=== PATIENT | female | born 1945 | race Caucasian/White ===

== ENCOUNTER 2019-06-16 14:14 | Emergency (ER) | payer MEDICARE, BC ==
[~2019-06-16] VITALS: Ht 165.1 cm; Wt 56.8 kg
[~2019-06-16 14:14] MED LIST: ALEN70TA60 PO; MAG400T PO; MECL12.584 PO; OMEG1CAP54 PO; ONDA4TAB59 PO; OSC500T PO; RIVA15TA PO; SIMV10TA2 PO; VERA240T PO
[2019-06-16 14:45] LABS: BASOPHILS % (AUTO) 0.9 % (0-1); EOSINOPHILS # (AUTO) 0.1 X10'3 (0-0.9); EOSINOPHILS % (AUTO) 1.4 % (0-6); HEMATOCRIT 47.3 % (35.0-45.0); HEMOGLOBIN 16.1 g/dl (12.0-16.0); LYMPHOCYTES # (AUTO) 1.7 X10'3 (1.1-4.8); LYMPHOCYTES % (AUTO) 33.6 % (21-51); MEAN CORPUSCULAR HEMOGLOBIN 30.6 PG (27.0-31.0); MEAN CORPUSCULAR HGB CONC 33.9 g/dL (33.0-36.5); MEAN CORPUSCULAR VOLUME 90.2 FL (78-98); MEAN PLATELET VOLUME 8.2 FL (7.4-10.4); MONOCYTES # (AUTO) 0.3 X10'3 (0-0.9); MONOCYTES % (AUTO) 6.5 % (2-12); NEUTROPHILS # (AUTO) 2.9 X10'3 (1.8-7.7); NEUTROPHILS % (AUTO) 57.6 % (42-75); PLATELET COUNT 147 X10'3 (140-440); RED BLOOD COUNT 5.25 X10'6 (4.20-5.60); RED CELL DISTRIBUTION WIDTH 13.6 % (11.5-14.5)
[2019-06-16 14:57] LABS: PARTIAL THROMBOPLASTIN TIME 29 SECONDS (22-32)
[2019-06-16 15:02] LABS: ALANINE AMINOTRANSFERASE 35 U/L (12-78); ALBUMIN 4.3 G/DL (3.4-5.0); ALBUMIN/GLOBULIN RATIO 1.2 (1.1-1.5); ALKALINE PHOSPHATASE 57 IU/L (46-116); ANION GAP 6 (8-16); ASPARTATE AMINO TRANSFERASE 29 U/L (10-37); BILIRUBIN,TOTAL 0.6 MG/DL (0.1-1.0); BLOOD UREA NITROGEN 23 MG/DL (7-18); BUN/CREATININE RATIO 19.7 (6.6-38.0); CALCIUM 9.8 MG/DL (8.5-10.1); CHLORIDE 104 MMOL/L (99-107); CREATININE 1.17 MG/DL (0.40-0.90); GLUCOSE 133 MG/DL (70-104); POTASSIUM 3.5 MMOL/L (3.5-5.1); SODIUM 144 MMOL/L (135-145); TOTAL CARBON DIOXIDE 34.2 MMOL/L (24-32); eGFR 45 ML/MIN
[2019-06-16 15:10] LABS: MAGNESIUM 2.2 MG/DL (1.5-2.4)
[2019-06-16 15:31] VITALS: BP 120/71
[2019-06-16] MEDS ORDERED: RIVA20TA PO (15:35)
[2019-06-16] MEDS ORDERED: SOTA80TA PO (15:35)
== END 2019-06-16 15:32 | disposition home or self-care (01) ==
LOC: ER 14:15
DX: I48.91 Unspecified atrial fibrillation (principal); I10 Essential (primary) hypertension; Z86.718 Personal history of other venous thrombosis and embolism; Z98.61 Coronary angioplasty status; Z88.2 Allergy status to sulfonamides; Z79.899 Other long term (current) drug therapy; Z88.5 Allergy status to narcotic agent
CPT/HCPCS: 36415; 71045; 80053; 83735; 83880; 84484; 85025; 85610; 85730; 93005; 99284

== ENCOUNTER 2021-03-13 07:04 | Emergency (ER) | payer MEDICARE, BC ==
[~2021-03-13] VITALS: Ht 152.4 cm; Wt 58.2 kg
[~2021-03-13 07:04] MED LIST changes: +MECL-226 PO; -MECL12.584 PO; +RIVA20TA PO; +SOTA80TA PO
[2021-03-13] MEDS ORDERED: normal saline 1000ml 1,000 ML IV ONE (07:20)
[2021-03-13 07:39] LABS: BASOPHILS % (AUTO) 0.2 % (0-1); EOSINOPHILS % (AUTO) 0.2 % (0-6); HEMATOCRIT 46.9 % (35.0-45.0); HEMOGLOBIN 15.6 g/dl (12.0-16.0); LYMPHOCYTES # (AUTO) 0.2 X10'3 (1.1-4.8); LYMPHOCYTES % (AUTO) 2.1 % (21-51); MEAN CORPUSCULAR HEMOGLOBIN 30.5 PG (27.0-31.0); MEAN CORPUSCULAR HGB CONC 33.2 g/dL (33.0-36.5); MEAN CORPUSCULAR VOLUME 91.8 FL (78-98); MEAN PLATELET VOLUME 8.6 FL (7.4-10.4); MONOCYTES # (AUTO) 0.3 X10'3 (0-0.9); MONOCYTES % (AUTO) 3.2 % (2-12); NEUTROPHILS # (AUTO) 7.4 X10'3 (1.8-7.7); NEUTROPHILS % (AUTO) 94.3 % (42-75); PLATELET COUNT 111 X10'3 (140-440); RED BLOOD COUNT 5.11 X10'6 (4.20-5.60); RED CELL DISTRIBUTION WIDTH 13.6 % (11.5-14.5); WHITE BLOOD COUNT 7.9 X10'3 (4.5-11.0)
[2021-03-13 07:54] LABS: ALANINE AMINOTRANSFERASE 45 U/L (12-78); ALBUMIN 3.7 G/DL (3.4-5.0); ALBUMIN/GLOBULIN RATIO 1.1 (1.1-1.5); ALKALINE PHOSPHATASE 56 IU/L (46-116); ANION GAP 12 (8-16); ASPARTATE AMINO TRANSFERASE 28 U/L (10-37); BLOOD UREA NITROGEN 34 MG/DL (7-18); BUN/CREATININE RATIO 26.8 (6.6-38.0); CALCIUM 8.7 MG/DL (8.5-10.1); CHLORIDE 106 MMOL/L (99-107); CREATININE 1.27 MG/DL (0.40-0.90); GLUCOSE 208 MG/DL (70-104); POTASSIUM 3.8 MMOL/L (3.5-5.1); SODIUM 145 MMOL/L (135-145); TOTAL CARBON DIOXIDE 27.2 MMOL/L (24-32); eGFR 41 ML/MIN
[2021-03-13 08:00] LABS: MAGNESIUM 1.9 MG/DL (1.5-2.4)
[2021-03-13] MEDS ORDERED: ONDA4TAB6 PO (08:25)
[2021-03-13 09:03] VITALS: BP 94/63
== END 2021-03-13 09:06 | disposition home or self-care (01) ==
LOC: ER 07:04
DX: K52.9 Noninfective gastroenteritis and colitis, unspecified (principal); R11.10 Vomiting, unspecified; R53.1 Weakness; E86.0 Dehydration; I10 Essential (primary) hypertension; Z86.718 Personal history of other venous thrombosis and embolism; Z98.51 Tubal ligation status; Z88.2 Allergy status to sulfonamides; Z79.899 Other long term (current) drug therapy
CPT/HCPCS: 36415; 71045; 80053; 83735; 83880; 84484; 85025; 93005; 99285; J7030

== ENCOUNTER 2023-04-05 07:37 | Emergency (ER) | payer MEDICARE, BC ==
[~2023-04-05] VITALS: Ht 165.1 cm; Wt 58.2 kg
[~2023-04-05 07:37] MED LIST changes: +ONDA4TAB6 PO; +SIMV-341 PO; -SIMV10TA2 PO
[2023-04-05 08:23] LABS: BASOPHILS % (AUTO) 0.4 % (0-1); EOSINOPHILS # (AUTO) 0.1 X10'3 (0-0.9); HEMATOCRIT 41.3 % (35.0-45.0); LYMPHOCYTES # (AUTO) 1.1 X10'3 (1.1-4.8); LYMPHOCYTES % (AUTO) 20.3 % (21-51); MEAN CORPUSCULAR HEMOGLOBIN 30.2 PG (27.0-31.0); MEAN CORPUSCULAR HGB CONC 33.8 g/dL (33.0-36.5); MEAN CORPUSCULAR VOLUME 89.5 FL (78-98); MEAN PLATELET VOLUME 8.1 FL (7.4-10.4); MONOCYTES # (AUTO) 0.4 X10'3 (0-0.9); MONOCYTES % (AUTO) 8.1 % (2-12); NEUTROPHILS # (AUTO) 3.8 X10'3 (1.8-7.7); NEUTROPHILS % (AUTO) 70.2 % (42-75); PLATELET COUNT 170 X10'3 (140-440); RED BLOOD COUNT 4.62 X10'6 (4.20-5.60); RED CELL DISTRIBUTION WIDTH 14.3 % (11.5-14.5); WHITE BLOOD COUNT 5.4 X10'3 (4.5-11.0)
[2023-04-05 08:36] LABS: ALANINE AMINOTRANSFERASE 19 U/L (12-78); ALBUMIN 3.5 G/DL (3.4-5.0); ALBUMIN/GLOBULIN RATIO 1.1 (1.1-1.5); ALKALINE PHOSPHATASE 61 IU/L (46-116); ANION GAP 7 (8-16); ASPARTATE AMINO TRANSFERASE 24 U/L (10-37); BILIRUBIN,TOTAL 0.5 MG/DL (0.1-1.0); BLOOD UREA NITROGEN 27 MG/DL (7-18); BUN/CREATININE RATIO 20.9 (10.0-20.0); CALCIUM 9.6 MG/DL (8.5-10.1); CHLORIDE 103 MMOL/L (99-107); CREATININE 1.29 MG/DL (0.40-0.90); GLUCOSE 148 MG/DL (70-104); MAGNESIUM 1.9 MG/DL (1.5-2.4); POTASSIUM 3.7 MMOL/L (3.5-5.1); SODIUM 140 MMOL/L (135-145); TOTAL CARBON DIOXIDE 30.4 MMOL/L (24-32); TOTAL PROTEIN 6.8 G/DL (6.4-8.2); eGFR 40 ML/MIN
--- NOTE | 2023-04-05 09:18 | NUR ---
PT CONVERTED HERSELF, 0905 71 BPM. WANTS REPEAT EKG.
[2023-04-05 09:29] VITALS: BP 114/73
== END 2023-04-05 09:31 | disposition home or self-care (01) ==
LOC: ER 07:37
DX: I48.0 Paroxysmal atrial fibrillation (principal); I10 Essential (primary) hypertension; Z88.2 Allergy status to sulfonamides; Z79.899 Other long term (current) drug therapy; Z79.1 Long term (current) use of non-steroidal anti-inflammatories (NSAID)
CPT/HCPCS: 36415; 71045; 80053; 83735; 83880; 84484; 85025; 99285

== ENCOUNTER 2023-04-29 08:44 | Emergency (ER) | payer MEDICARE, BC ==
[~2023-04-29] VITALS: Ht 165.1 cm; Wt 58.6 kg
[2023-04-29] MEDS: diltiazem 5mg/ml 5ml inj. IV ONE ×2 (09:51→09:53)
[2023-04-29] MEDS ORDERED: normal saline 1000ml 1,000 ML IV ONE (09:55)
[2023-04-29 09:58] LABS: BASOPHILS % (AUTO) 0.4 % (0-1); EOSINOPHILS % (AUTO) 0.6 % (0-6); HEMATOCRIT 41.7 % (35.0-45.0); HEMOGLOBIN 14.2 g/dl (12.0-16.0); LYMPHOCYTES # (AUTO) 1.2 X10'3 (1.1-4.8); LYMPHOCYTES % (AUTO) 16.2 % (21-51); MEAN CORPUSCULAR HEMOGLOBIN 30.4 PG (27.0-31.0); MEAN CORPUSCULAR VOLUME 89.4 FL (78-98); MEAN PLATELET VOLUME 8.7 FL (7.4-10.4); MONOCYTES # (AUTO) 0.6 X10'3 (0-0.9); MONOCYTES % (AUTO) 8.1 % (2-12); NEUTROPHILS # (AUTO) 5.8 X10'3 (1.8-7.7); NEUTROPHILS % (AUTO) 74.7 % (42-75); PLATELET COUNT 203 X10'3 (140-440); RED BLOOD COUNT 4.66 X10'6 (4.20-5.60); RED CELL DISTRIBUTION WIDTH 14.1 % (11.5-14.5); WHITE BLOOD COUNT 7.7 X10'3 (4.5-11.0)
[2023-04-29 10:03] LABS: ALANINE AMINOTRANSFERASE 18 U/L (12-78); ALBUMIN 3.5 G/DL (3.4-5.0); ALKALINE PHOSPHATASE 56 IU/L (46-116); ANION GAP 10 (8-16); ASPARTATE AMINO TRANSFERASE 19 U/L (10-37); BILIRUBIN,TOTAL 0.5 MG/DL (0.1-1.0); BLOOD UREA NITROGEN 38 MG/DL (7-18); BUN/CREATININE RATIO 34.9 (10.0-20.0); CHLORIDE 104 MMOL/L (99-107); CREATININE 1.09 MG/DL (0.40-0.90); GLUCOSE 106 MG/DL (70-104); POTASSIUM 3.8 MMOL/L (3.5-5.1); SODIUM 141 MMOL/L (135-145); TOTAL CARBON DIOXIDE 26.6 MMOL/L (24-32); TOTAL PROTEIN 7.1 G/DL (6.4-8.2); eGFR 49 ML/MIN
[2023-04-29 10:15] LABS: CALCIUM 9.6 MG/DL (8.5-10.1)
[2023-04-29 12:40] VITALS: BP 110/61
== END 2023-04-29 12:39 | disposition home or self-care (01) ==
LOC: ER 08:44
DX: I48.0 Paroxysmal atrial fibrillation (principal); R00.0 Tachycardia, unspecified; I10 Essential (primary) hypertension; Z79.899 Other long term (current) drug therapy; Z88.2 Allergy status to sulfonamides; Z79.1 Long term (current) use of non-steroidal anti-inflammatories (NSAID)
CPT/HCPCS: 36415; 71045; 80053; 83880; 84484; 85025; 93005; 96360; 99285; J7030; J3490

== ENCOUNTER 2023-09-12 15:07 | Emergency (ER) | payer MEDICARE, BC ==
[~2023-09-12] VITALS: Ht 165.1 cm; Wt 62.3 kg
[2023-09-12 15:17] VITALS: BP 119/44; PULSE 57; TEMP 98.1; O2SAT 97
[2023-09-12] MEDS ORDERED: LIDOCAINE 1%/EPI 1:100,000 inj. 10 ML multi-dose vial SQ ONE (15:45)
[2023-09-12] MEDS ORDERED: TETanus/Pertussis (Acell)/Diphther VAC/PF (Tdap-Adult) 0.5ml syringe IMVAC ONE (15:50)
[2023-09-12] MEDS ORDERED: tetanus & diphtheria toxoid (Td) vaccine 0.5ml IMVAC ONE (15:50)
--- NOTE | 2023-09-12 17:22 | NUR ---
SCALE CLERK ASSESSMENT REVIEWED BY JOSELO BEAVER RN; APPROVED
[2023-09-12] MEDS ORDERED: HYDROcodone/acetaminophen 5mg/325mg tablet PO ONE (18:00)
[2023-09-12 18:09] VITALS: RESP 18
[2023-09-12] MEDS ORDERED: HYDR-3965 PO ×2 (18:10)
[2023-09-13] MEDS ORDERED: CEPH250T PO (19:39)
[2023-09-21] MEDS ORDERED: ROSU10TA28 PO (10:07)
[2023-09-21] MEDS ORDERED: APIX5TAB3 PO (10:07)
[2023-09-21] MEDS ORDERED: SOTA80TA73 PO (10:07)
== END 2023-09-12 18:19 | disposition home or self-care (01) ==
LOC: ER 15:07
DX: S61.512A Laceration without foreign body of left wrist, initial encounter (principal); S80.01XA Contusion of right knee, initial encounter; I11.0 Hypertensive heart disease with heart failure; Z88.2 Allergy status to sulfonamides; Z79.899 Other long term (current) drug therapy; Z79.1 Long term (current) use of non-steroidal anti-inflammatories (NSAID); Z79.2 Long term (current) use of antibiotics; W19.XXXA Unspecified fall, initial encounter; Y93.89 Activity, other specified; Y92.89 Other specified places as the place of occurrence of the external cause; Y99.8 Other external cause status
CPT/HCPCS: 12001; 90471; 90715; 99284; A6222; A6258; A6449

== ENCOUNTER 2023-09-13 19:01 | Emergency (ER) | payer MEDICARE, BC ==
[~2023-09-13] VITALS: Ht 165.1 cm; Wt 59.1 kg
[~2023-09-13 19:01] MED LIST changes: +HYDR-3965 PO
[2023-09-13] MEDS ORDERED: CEPH250T PO (19:39)
[2023-09-13 20:04] VITALS: BP 124/70; PULSE 65; RESP 16; TEMP 98.6; O2SAT 99
== END 2023-09-13 20:07 | disposition home or self-care (01) ==
LOC: ER 19:02
DX: S61.512D Laceration without foreign body of left wrist, subsequent encounter (principal); I11.0 Hypertensive heart disease with heart failure; Z88.2 Allergy status to sulfonamides; Z79.899 Other long term (current) drug therapy; X58.XXXD Exposure to other specified factors, subsequent encounter
CPT/HCPCS: 29125; 99283

== ENCOUNTER 2023-09-24 07:37 | Day surgery (SDC) | payer MEDICARE, BC ==
[2023-09-21 10:09] LABS: BASOPHILS % (AUTO) 0.5 % (0-1); EOSINOPHILS # (AUTO) 0.1 X10'3 (0-0.9); EOSINOPHILS % (AUTO) 1.7 % (0-6); LYMPHOCYTES # (AUTO) 1.2 X10'3 (1.1-4.8); LYMPHOCYTES % (AUTO) 23.8 % (21-51); MEAN CORPUSCULAR HEMOGLOBIN 29.8 PG (27.0-31.0); MEAN CORPUSCULAR HGB CONC 33.2 g/dL (33.0-36.5); MEAN CORPUSCULAR VOLUME 89.8 FL (78-98); MEAN PLATELET VOLUME 7.9 FL (7.4-10.4); MONOCYTES # (AUTO) 0.5 X10'3 (0-0.9); MONOCYTES % (AUTO) 10.8 % (2-12); NEUTROPHILS # (AUTO) 3.1 X10'3 (1.8-7.7); NEUTROPHILS % (AUTO) 63.2 % (42-75); PRE OP HEMATOCRIT 43.2 % (35.0-45.0); PRE OP HEMOGLOBIN 14.4 g/dL (12.0-16.0); PRE OP PLATELET COUNT 139 X10'3 (140-440); RED BLOOD COUNT 4.81 X10'6 (4.20-5.60); RED CELL DISTRIBUTION WIDTH 14.6 % (11.5-14.5)
[2023-09-21 10:26] LABS: ALBUMIN 3.5 G/DL (3.4-5.0); ALBUMIN/GLOBULIN RATIO 1.1 (1.1-1.5); ALKALINE PHOSPHATASE 55 IU/L (46-116); BLOOD UREA NITROGEN 33 MG/DL (7-18); BUN/CREATININE RATIO 29.7 (10.0-20.0); CALCIUM 9.9 MG/DL (8.5-10.1); CHLORIDE 104 MMOL/L (99-107); CREATININE 1.11 MG/DL (0.40-0.90); PRE OP ALT 21 U/L (30-65); PRE OP ANION GAP 6 (8-16); PRE OP AST 20 U/L (10-37); PRE OP BILIRUB, TOTAL 0.6 MG/DL (0.0-1.0); PRE OP GLUCOSE 100 MG/DL (70-104); PRE OP POTASSIUM 3.8 MMOL/L (3.4-5.1); PRE OP SODIUM 139 MMOL/L (135-145); TOTAL CARBON DIOXIDE 29.5 MMOL/L (24-32); TOTAL PROTEIN 6.7 G/DL (6.4-8.2); eGFR 48 ML/MIN
[2023-09-24] VITALS (7 sets, daily range): BP systolic 126–159; BP diastolic 66–89; PULSE 48–57; RESP 10–16; TEMP 96.3; O2SAT 94–96
[~2023-09-24] VITALS: Ht 165.1 cm; Wt 59.1 kg
[~2023-09-24 07:37] MED LIST changes: -ALEN70TA60 PO; +APIX5TAB3 PO; +DOCUMENT DATE & TIME OF BETA-BLOCKER PO ONE; -HYDR-3965 PO; -MAG400T PO; -MECL-226 PO; -OMEG1CAP54 PO; -ONDA4TAB59 PO; -ONDA4TAB6 PO; -OSC500T PO; -RIVA15TA PO; -RIVA20TA PO; +ROSU10TA28 PO; -SIMV-341 PO; -SOTA80TA PO; +SOTA80TA73 PO; +cefazolin 2gm/D5W 100mL 100 ML IV ONE; +famotidine 20mg tablet PO ONE; +ringers solution, lacted 1,000 ML IV SCH
[2023-09-24] MEDS ORDERED: ringers solution, lacted 1,000 ML IV SCH (10:00)
[2023-09-24] MEDS ORDERED: acetaminophen 1,000mg/100ml IV 100 ML IV PRN (10:00)
[2023-09-24] MEDS ORDERED: meperidine/PF 25mg/ml syringe IV PRN ×3 (10:00)
[2023-09-24] MEDS ORDERED: hydrALAZINE 20mg/ml inj. IV PRN (10:00)
[2023-09-24] MEDS ORDERED: ondansetron/PF 4mg/2ml inj IV PRN (10:00)
[2023-09-24] MEDS ORDERED: morphine 4 MG/ML inj SYRINge IV PRN (10:00)
[2023-09-24] MEDS ORDERED: proCHLORperazine 10 MG/2 ml inj IV PRN (10:00)
[2023-09-24] MEDS ORDERED: morphine 2 MG/ML inj. syringe IV PRN (10:00)
[2023-09-24] MEDS ORDERED: labetalol 20mg/4ml (5mg/ml) syringe IV PRN (10:00)
[2023-09-24] MEDS ORDERED: BUPIVAcaine/PF 2.5mg/ml (0.25%) 10ml vial ONE (11:16)
[2023-09-24] MEDS ORDERED: midazolam 1 mg/ML 2ml injection ONE (11:18)
[2023-09-24] MEDS ORDERED: fentaNYL/PF 50MCG/1 ML 2ML syringe ONE (11:58)
[2023-09-24] MEDS ORDERED: BUPIVAcaine 0.5% W/EPI /PF 10ml vial IJ ONE (12:02)
[2023-09-24] MEDS ORDERED: propofol inj 20 ML IV ONE (12:07)
--- NOTE | 2023-09-24 12:14 | NUR ---
Received from OR via STRETCHER , accompanied by Anesthesiologist COLETTE and report given by Anesthesiolgist. PT IS DROWSY BUT RESPONSIVE. ON RA ON ARRIVAL= MAINTAINING SAO2 AT >96%. MONITOR SB. EUPNEIC RESPIRATIONS. L WRIST IN SOFT CAST AND ANNE MARIE WRAP D&I. REPORTS FINGERS ARE NUMB BUT ABLE TO MOVE THEM AND ALL EXTREMITIES.DENIES PAIN OR NAUSEA. ENCOURAGED TO DEEP BREATHE AND MOVE FINGERS. ICE TO WRIST. Addendum: 09/24/23 at 1319 by Candi Amin RN Amended: Links added.
--- NOTE | 2023-09-24 13:14 | NUR ---
PT NOW FULLY AWAKE. MONITOR CONTINUES SR/SB. SHE IS BREATHING NORMALLY ON RA - MAINTAINING SAO2 >95%. ENCOURAGED TO DEEP BREATHE. DENIES PAIN. L WRIST KEPT ELEVATED W/ ICE. DRESSING D&I. PT WILL BE LEAVING FOR A MEMORIAL SERVICE IN [place] UPON DC... DC INSTRUCTIONS GIVEN. DISCHARGED TO VIA WC WITHOUT INCIDENT. Addendum: 09/24/23 at 1331 by Candi Amin RN Amended: Links added.
== END 2023-09-24 13:14 | disposition home or self-care (01) ==
LOC: PAS 07:37
PROVIDERS: ATTEND Orthopaedic Surgery Hand Surgery
DX: S54.12XA Injury of median nerve at forearm level, left arm, initial encounter (principal); I10 Essential (primary) hypertension; I48.91 Unspecified atrial fibrillation; E78.5 Hyperlipidemia, unspecified; M18.0 Bilateral primary osteoarthritis of first carpometacarpal joints; M18.11 Unilateral primary osteoarthritis of first carpometacarpal joint, right hand; Z86.718 Personal history of other venous thrombosis and embolism; Z98.51 Tubal ligation status; Z98.890 Other specified postprocedural states; Z87.442 Personal history of urinary calculi; Z88.2 Allergy status to sulfonamides; Z79.01 Long term (current) use of anticoagulants; Z79.899 Other long term (current) drug therapy; Z82.49 Family history of ischemic heart disease and other diseases of the circulatory system; Z80.6 Family history of leukemia; W25.XXXA Contact with sharp glass, initial encounter; Y93.89 Activity, other specified; Y92.89 Other specified places as the place of occurrence of the external cause; Y99.8 Other external cause status
CPT/HCPCS: 36415; 64834; 80053; 82948; 85025; J0690; J2250; J2704; J3010; J3490; J7030; J7120; S0020; Z7506; Z7512; A4215; A4618; A7000

== ENCOUNTER 2024-01-18 01:01 | Emergency (ER) | payer MEDICARE, BC ==
[~2024-01-18] VITALS: Ht 165.1 cm; Wt 60.6 kg
[~2024-01-18 01:01] MED LIST changes: -DOCUMENT DATE & TIME OF BETA-BLOCKER PO ONE; -cefazolin 2gm/D5W 100mL 100 ML IV ONE; -famotidine 20mg tablet PO ONE; -ringers solution, lacted 1,000 ML IV SCH
[2024-01-18 01:10] VITALS: BP 145/88; PULSE 110; RESP 16; TEMP 97.8; O2SAT 98
[2024-01-18 01:43] LABS: BASOPHILS % (AUTO) 0.6 % (0-1); EOSINOPHILS # (AUTO) 0.1 X10'3 (0-0.9); EOSINOPHILS % (AUTO) 1.4 % (0-6); HEMATOCRIT 47.5 % (35.0-45.0); LYMPHOCYTES # (AUTO) 1.9 X10'3 (1.1-4.8); LYMPHOCYTES % (AUTO) 38.2 % (21-51); MEAN CORPUSCULAR HEMOGLOBIN 30.4 PG (27.0-31.0); MEAN CORPUSCULAR HGB CONC 33.7 g/dL (33.0-36.5); MEAN CORPUSCULAR VOLUME 90.2 FL (78-98); MEAN PLATELET VOLUME 8.6 FL (7.4-10.4); MONOCYTES # (AUTO) 0.4 X10'3 (0-0.9); NEUTROPHILS # (AUTO) 2.5 X10'3 (1.8-7.7); NEUTROPHILS % (AUTO) 51.8 % (42-75); PLATELET COUNT 134 X10'3 (140-440); RED BLOOD COUNT 5.26 X10'6 (4.20-5.60); RED CELL DISTRIBUTION WIDTH 13.7 % (11.5-14.5); WHITE BLOOD COUNT 4.9 X10'3 (4.5-11.0)
[2024-01-18 01:46] LABS: ALANINE AMINOTRANSFERASE 18 U/L (12-78); ALBUMIN/GLOBULIN RATIO 1.3 (1.1-1.5); ALKALINE PHOSPHATASE 56 IU/L (46-116); ANION GAP 7 (8-16); ASPARTATE AMINO TRANSFERASE 26 U/L (10-37); BILIRUBIN,TOTAL 0.7 MG/DL (0.1-1.0); BLOOD UREA NITROGEN 33 MG/DL (7-18); BUN/CREATININE RATIO 28.2 (10.0-20.0); CHLORIDE 105 MMOL/L (99-107); CREATININE 1.17 MG/DL (0.40-0.90); GLUCOSE 133 MG/DL (70-104); POTASSIUM 3.7 MMOL/L (3.5-5.1); SODIUM 143 MMOL/L (135-145); TOTAL CARBON DIOXIDE 31.3 MMOL/L (24-32); TOTAL PROTEIN 7.1 G/DL (6.4-8.2); eCRCL 36 ML/MIN; eGFR 45 ML/MIN
[2024-01-18 01:54] LABS: PRO BRAIN NATRIURETIC PEPTIDE 257 PG/ML (0-450)
[2024-01-18 01:59] LABS: CALCIUM 9.6 MG/DL (8.5-10.1)
[2024-01-18] MEDS: normal saline 1000ml 1,000 ML IV ONE (02:43)
[2024-01-18] MEDS: adenosine 3mg/ml 2ml vial IV ONE (03:10)
== END 2024-01-18 03:11 | disposition home or self-care (01) ==
LOC: ER 01:03
DX: I47.19 Other supraventricular tachycardia (principal); I10 Essential (primary) hypertension; Z88.2 Allergy status to sulfonamides; Z79.899 Other long term (current) drug therapy
CPT/HCPCS: 36415; 71045; 80053; 83880; 84484; 85025; 93005; 99285; J7030

== ENCOUNTER 2025-02-13 04:39 | Emergency (ER) | payer MEDICARE, BC ==
[~2025-02-13] VITALS: Ht 165.1 cm; Wt 58.2 kg
[~2025-02-13 04:39] MED LIST changes: -ROSU10TA28 PO; +ROSU10TA72 PO
[2025-02-13 04:41] VITALS: TEMP 98
[2025-02-13 05:24] VITALS: BP 118/73; PULSE 96; RESP 14; O2SAT 97
== END 2025-02-13 05:25 | disposition home or self-care (01) ==
LOC: ER 04:40
DX: R42 Dizziness and giddiness (principal); I10 Essential (primary) hypertension; I48.91 Unspecified atrial fibrillation; Z88.2 Allergy status to sulfonamides; Z98.51 Tubal ligation status
CPT/HCPCS: 71045; 93005; 99283

== ENCOUNTER 2025-03-02 08:42 | Emergency (ER) | payer MEDICARE, BC ==
[~2025-03-02] VITALS: Ht 165.1 cm; Wt 59.1 kg
[2025-03-02 08:46] VITALS: TEMP 98
[2025-03-02 09:10] LABS: BASOPHILS % (AUTO) 0.6 % (0-1); EOSINOPHILS # (AUTO) 0.1 X10'3 (0-0.9); EOSINOPHILS % (AUTO) 2.1 % (0-6); HEMATOCRIT 45.8 % (35.0-45.0); HEMOGLOBIN 15.3 g/dl (12.0-16.0); LYMPHOCYTES # (AUTO) 0.8 X10'3 (1.1-4.8); LYMPHOCYTES % (AUTO) 22.4 % (21-51); MEAN CORPUSCULAR HEMOGLOBIN 29.9 PG (27.0-31.0); MEAN CORPUSCULAR HGB CONC 33.4 g/dL (33.0-36.5); MEAN CORPUSCULAR VOLUME 89.5 FL (78-98); MEAN PLATELET VOLUME 8.3 FL (7.4-10.4); MONOCYTES # (AUTO) 0.3 X10'3 (0-0.9); MONOCYTES % (AUTO) 7.2 % (2-12); NEUTROPHILS # (AUTO) 2.6 X10'3 (1.8-7.7); NEUTROPHILS % (AUTO) 67.7 % (42-75); PLATELET COUNT 135 X10'3 (140-440); RED BLOOD COUNT 5.12 X10'6 (4.20-5.60); RED CELL DISTRIBUTION WIDTH 14.5 % (11.5-14.5); WHITE BLOOD COUNT 3.8 X10'3 (4.5-11.0)
[2025-03-02 09:24] LABS: ALANINE AMINOTRANSFERASE 32 U/L (12-78); ALBUMIN 3.6 G/DL (3.4-5.0); ALBUMIN/GLOBULIN RATIO 1.1 (1.1-1.5); ALKALINE PHOSPHATASE 66 IU/L (46-116); ANION GAP 2 (8-16); ASPARTATE AMINO TRANSFERASE 25 U/L (10-37); BILIRUBIN,TOTAL 0.7 MG/DL (0.1-1.0); BLOOD UREA NITROGEN 27 MG/DL (7-18); BUN/CREATININE RATIO 26.7 (10.0-20.0); CALCIUM 8.9 MG/DL (8.5-10.1); CHLORIDE 106 MMOL/L (99-107); CREATININE 1.01 MG/DL (0.40-0.90); GLUCOSE 86 MG/DL (70-104); POTASSIUM 3.8 MMOL/L (3.5-5.1); SODIUM 141 MMOL/L (135-145); TOTAL CARBON DIOXIDE 32.8 MMOL/L (24-32); TOTAL PROTEIN 6.9 G/DL (6.4-8.2); eCRCL 41 ML/MIN; eGFR 53 ML/MIN
[2025-03-02 09:31] LABS: PRO BRAIN NATRIURETIC PEPTIDE 365 PG/ML (0-450)
[2025-03-02 09:56] LABS: MAGNESIUM 1.8 MG/DL (1.5-2.4)
[2025-03-02 10:22] VITALS: BP 153/86; PULSE 52; RESP 14; O2SAT 99
== END 2025-03-02 10:23 | disposition home or self-care (01) ==
LOC: ER 08:43
DX: R42 Dizziness and giddiness (principal); I10 Essential (primary) hypertension; I48.91 Unspecified atrial fibrillation; Z88.2 Allergy status to sulfonamides; Z86.718 Personal history of other venous thrombosis and embolism; Z98.51 Tubal ligation status; Z79.899 Other long term (current) drug therapy
CPT/HCPCS: 36415; 71045; 80053; 83735; 83880; 84484; 85025; 93005; 99285

== ENCOUNTER 2025-04-30 15:35 | Emergency (ER) | payer MEDICARE, BC ==
[~2025-04-30] VITALS: Ht 165.1 cm; Wt 57.5 kg
[2025-04-30 15:51] VITALS: PULSE 72; TEMP 97.8
--- NOTE | 2025-04-30 15:51 | ELECTROCARDIOGRAPH REPORT ---
[facility] Test Date: 2025-04-30 Test Time: 15:39:46 Pat Name: DANNY BEASLEY Department: EMERGENCY ROOM Room: Gender: F Compensation Manager: PM : 1945 Requested By: MARILEE ABAD Order Number: [id number] Reading MD: Measurements Intervals Munith Rate: 157 P: 0 WI: 0 QRS: 0 QRSD: 169 T: 164 QT: 399 QTc: 646 Interpretive Statements Extreme tachycardia with wide complex, no further rhythm analysis attempted Artifact in lead(s) I,II,III,aVR,aVL,aVF,V1,V2,V3,V4,V5,V6 and baseline wander in lead(s) I,III,aVL Please click the below link to view image of tracing.
--- NOTE | 2025-04-30 16:02 | RADIOLOGY REPORT ---
CHEST RADIOGRAPH Indication: CP Technique: Single frontal view of the chest was obtained COMPARISON: DI CHEST,SINGLE VIEW on DOS: 03/02/25, DI CHEST,SINGLE VIEW on DOS: 02/13/25, DI CHEST,SINGL E VIEW on DOS: 05/07/24, DI CHEST,SINGLE VIEW on DOS: 01/18/24, CHEST,SINGLE VIEW on DOS: 04/29/23 FINDINGS: Lines and Tubes: None Lungs: Clear Pleura: No effusion. No pneumothorax. Cardiomediastinal contours: Cardiomegaly Bones: Unremarkable IMPRESSION: No acute disease.
[2025-04-30 16:03] VITALS: RESP 16
[2025-04-30 16:21] LABS: BASOPHILS % (AUTO) 0.7 % (0-1); EOSINOPHILS # (AUTO) 0.1 X10'3 (0-0.9); EOSINOPHILS % (AUTO) 1.2 % (0-6); HEMATOCRIT 45.7 % (35.0-45.0); HEMOGLOBIN 15.7 g/dl (12.0-16.0); LYMPHOCYTES # (AUTO) 1.8 X10'3 (1.1-4.8); LYMPHOCYTES % (AUTO) 27.7 % (21-51); MEAN CORPUSCULAR HEMOGLOBIN 30.3 PG (27.0-31.0); MEAN CORPUSCULAR HGB CONC 34.3 g/dL (33.0-36.5); MEAN CORPUSCULAR VOLUME 88.4 FL (78-98); MEAN PLATELET VOLUME 8.3 FL (7.4-10.4); MONOCYTES # (AUTO) 0.8 X10'3 (0-0.9); MONOCYTES % (AUTO) 11.6 % (2-12); NEUTROPHILS # (AUTO) 3.9 X10'3 (1.8-7.7); NEUTROPHILS % (AUTO) 58.8 % (42-75); PLATELET COUNT 155 X10'3 (140-440); RED BLOOD COUNT 5.16 X10'6 (4.20-5.60); RED CELL DISTRIBUTION WIDTH 14.3 % (11.5-14.5); WHITE BLOOD COUNT 6.6 X10'3 (4.5-11.0)
[2025-04-30 16:37] LABS: ALBUMIN 4.2 G/DL (3.4-5.0); ANION GAP 9 (8-16); BLOOD UREA NITROGEN 30 MG/DL (7-18); BUN/CREATININE RATIO 25.6 (10.0-20.0); CALCIUM 9.5 MG/DL (8.5-10.1); CHLORIDE 101 MMOL/L (99-107); CREATININE 1.17 MG/DL (0.40-0.90); GLUCOSE 97 MG/DL (70-104); POTASSIUM 3.6 MMOL/L (3.5-5.1); PRO BRAIN NATRIURETIC PEPTIDE 288 PG/ML (0-450); SODIUM 140 MMOL/L (135-145); TOTAL CARBON DIOXIDE 29.9 MMOL/L (24-32); eCRCL 35 ML/MIN; eGFR 45 ML/MIN
--- NOTE | 2025-04-30 16:49 | Physician Documentation ---
History of Present Illness General Chief Complaint: Palpitations Stated Complaint: "MY HEART IS IN AFIB" Time Seen by MD: 16:27 Primary Medical Doctor: Yusuf Mode of Arrival: POV History of Present Illness Initial Comments The patient is a 80-year-old female who underwent a catheter ablation by Dr. Garnica in [place] on April 20, 10 days ago. Beginning this Wednesday, three days ago she has had three episodes of atrial fibrillation. The episode today began around 230 this afternoon in ended prior to her arrival here. Medication Reconciliation Allergies: Coded Allergies: Sulfa (Sulfonamide Antibiotics) (Verified Allergy, Unknown, HIVES, 02/13/25) Scheduled Apixaban (Eliquis), 1 TAB PO BID, (Reported) Rosuvastatin Calcium (Rosuvastatin Calcium), 1 TAB PO DAILY, (Reported) Sotalol Hcl* (Betapace*), 1 TAB PO BID, (Reported) Scheduled PRN Verapamil Hcl SR* (Calan SR*), 0.5 TAB PO HS PRN for high blood pressure, (Reported) Past Medical History Past Medical History: Vertigo, Atrial Fibrillation, Hypertension, Deep Vein Thrombosis Past Surgical History: tubal ligation Other Past Surgical History: lipotripsy Alcohol Use: None Drug Use: none Lives with: Spouse Lives In: Home Review of Systems ROS Constitutional: Denies chills, fatigue, fever, weight gain or weight loss. HEENT: Denies hearing loss, sinus pressure or visual changes. Respiratory: Denies cough, shortness of breath or wheezing. Cardiovascular: Denies chest pain, pain while walking (claudication), edema or palpitations. Gastrointestinal: Denies abdominal pain, blood in stool, constipation, diarrhea, heartburn, loss of appetite, nausea or vomiting. Genitourinary: Denies painful urination (dysuria), excessive amount of urine (polyuria) or urinary frequency. Metabolic/Endocrine: Denies cold intolerance, heat intolerance, excessive thirst (polydipsia) or excessive hunger (polyphagia). Neurological: Denies dizziness, extremity numbness, extremity weakness, headaches, seizures or tremors. Psychiatric: Denies anxiety or depression. Integumentary: Denies breast discharge, breast lump, hives, mole change(s), rash or skin lesion. Musculoskeletal: Denies back pain, joint pain, joint swelling or neck pain. Hematologic: Denies easily bleeding, easily bruises, lymphedema or issues with blood clots. Immunologic: Denies food allergies or seasonal allergies. Physical Exam Physical Exam Vital Signs: Temperature: 97.8, Heart Rate: 72, Respiratory Rate: 16, BP: 178/102, Pulse Oximetry: 96, Weight: 57.500 Oxygen Flow Rate: 0 Physical Exam Physical Exam Vitals and nursing note reviewed. Constitutional: General: Patient is awake, alert, oriented x 4 in no acute distress and well appearing. Speech is clear and lucid. Appearance: Normal appearance. Patient is not ill-appearing, toxic-appearing or diaphoretic. HENT: Head: Normocephalic and atraumatic. Mouth/Throat: Mouth: Mucous membranes are moist. Pharynx: Oropharynx is clear. Eyes: General: No scleral icterus. Extraocular Movements: Extraocular movements intact. Pupils: Pupils are equal, round, and reactive to light. Cardiovascular: Rate and Rhythm: Normal rate and regular rhythm. Heart sounds: No murmur heard. Pulmonary: Effort: No respiratory distress. Breath sounds: No wheezing, rhonchi or rales. Abdominal: General: There is no distension. Palpations: There is no fluid wave, hepatomegaly or mass. Tenderness: There is no abdominal tenderness. There is no guarding. Musculoskeletal: General: No swelling or deformity. Skin: Coloration: Skin is not jaundiced. Findings: No erythema or rash. Neurological: Mental Status: Patient is alert. Progress Results/Orders Results/Orders Orders - MARILEE ABAD MD Chest,Single View (04/30/25 15:45) Monitor (04/30/25 15:45) Saline Lock (04/30/25 15:45) Oxygen (04/30/25 15:45) Hs Troponin I W Calculations (04/30/25 17:45) Hs Troponin I W Calculations (04/30/25 18:45) Completed Orders - MARILEE ABAD MD Chest,Single View (04/30/25 15:45) Cbc/Diff (04/30/25 15:45) BMP (04/30/25 15:45) PBNP (04/30/25 15:45) Electrocardiogram (04/30/25 15:45) Hs Troponin I W Calculations (04/30/25 15:45) Vital Signs 04/30/25 04/30/25 15:51 16:03 Temp 97.8 Pulse 72 Resp 15 16 B/P (MAP) 178/102 Pulse Ox 96 O2 Flow Rate 0 Laboratory Tests Test 04/30/25 15:54 White Blood Count 6.6 Red Blood Count 5.16 Hemoglobin 15.7 Hematocrit 45.7 H Mean Corpuscular Volume 88.4 Mean Corpuscular Hemoglobin 30.3 Mean Corpuscular Hemoglobin Concent 34.3 Red Cell Distribution Width 14.3 Platelet Count 155 Mean Platelet Volume 8.3 Neutrophils (%) (Auto) 58.8 Lymphocytes (%) (Auto) 27.7 Monocytes (%) (Auto) 11.6 Eosinophils (%) (Auto) 1.2 Basophils (%) (Auto) 0.7 Neutrophils # (Auto) 3.9 Lymphocytes # (Auto) 1.8 Monocytes # (Auto) 0.8 Eosinophils # (Auto) 0.1 Basophils # (Auto) 0.0 CBC Comment Sodium Level 140 Potassium Level 3.6 Chloride Level 101 Carbon Dioxide Level 29.9 Anion Gap 9 Blood Urea Nitrogen 30 H Creatinine 1.17 H Estimated GFR/1.73 m2 45 BUN/Creatinine Ratio 25.6 H Glucose Level 97 Calcium Level 9.5 Troponin I High Sensitivity 50 Pro-B-Type Natriuretic Peptide 288 Albumin 4.2 Chemistry Comments Medical Decision Making Findings The patient underwent catheter ablation 10 days ago so this represents the "blanking period." Nevertheless, the patient has been in AFib 3 times in the past three days. I will ask her to phoned Dr. Garnica office and advised them. She was on sotalol prior to the ablation but they had her discontinue it. She is still on Eliquis. Departure Disposition: HOME / SELF CARE / HOMELESS Impression: Primary Impression: Paroxysmal atrial fibrillation Condition: Stable Additional Instructions: As discussed, you are going through the "blanking period" which may last up to three months. Nevertheless, please call Dr. Garnica office and let them know that you have been in atrial fibrillation 3 times in three days. You are always welcome to return here for worsening symptoms or new/unusual symptoms. We wish you a speedy recovery. Referrals: NO PRIMARY CARE PROVIDER (PCP) Signature Scribe Signature: . Attestation: MARILEE GARCIA MD Apr 30, 2025 16:49
[2025-04-30 17:31] VITALS: BP 164/78; O2SAT 8
== END 2025-04-30 17:33 | disposition home or self-care (01) ==
LOC: ER 15:36
DX: I48.0 Paroxysmal atrial fibrillation (principal); I10 Essential (primary) hypertension; R06.02 Shortness of breath; Z88.2 Allergy status to sulfonamides; Z98.51 Tubal ligation status
CPT/HCPCS: 36415; 71045; 80048; 83880; 84484; 85025; 93005; 99285; J7030